=== PATIENT | male | born 1955 | race Caucasian/White ===

== ENCOUNTER 2019-01-28 14:56 | Emergency (ER) | payer BC ==
[2019-01-28] MEDS ORDERED: CIPROFLOXACIN HCL 500 MG TAB ONE (15:53)
[2019-01-28] MEDS ORDERED: TETANUS & DIPHTHERIA TOX,ADULT 0.5 ML VIAL ONE (15:53)
--- NOTE | 2019-01-28 16:19 | RAD REPORT ---
EXAM DESCRIPTION: RAD - Elbow Right 3 View - 01/28/2019 3:48 pm CLINICAL HISTORY: Right elbow pain status post injury FINDINGS: 7 millimeter bony/calcific density adjacent to the olecranon likely is chronic. No acute fracture or dislocation is seen. Diffuse edema is present within the subcutaneous tissues. No bony destructive lesion noted
--- NOTE | 2019-01-28 17:17 | EDPHYS ---
Physician Documentation [facility] Name: Manuel Jiang Jr Age: 63 yrs Sex: Male : 1955 Arrival Date: 01/28/2019 Time: 14:59 Bed 12 Private MD: Ja Batres ED Physician Kosta Sanderson HPI: 01/28 15:43 This 63 yrs old Male presents to ER via Ambulatory with complaints of Elbow snw Injury. 15:43 The patient or guardian complains of contusion, pain, swelling, tenderness. The snw complaints affect the right elbow. Context: The problem was sustained outdoors, resulted from pt had a mis-step and struck elbow of the brick wall of his home . Onset: The symptoms/episode began/occurred suddenly, 3 day(s) ago, and became persistent. Modifying factors: The symptoms are alleviated by nothing. the symptoms are aggravated by nothing. Associated signs and symptoms: Pertinent positives: swelling, bruising. Severity of symptoms: At their worst the symptoms were moderate, in the emergency department the symptoms are unchanged. The patient has not experienced similar symptoms in the past. The patient has not recently seen a physician. Historical: - Allergies: 15:08 No Known Allergies; aa5 - PMHx: 15:08 Diverticulitis; Acid Reflux; "Leaky heart valve"; aa5 - Immunization history:: Adult Immunizations up to date. - Social history:: Smoking status: Patient/guardian denies using tobacco. - Ebola Screening: : No symptoms or risks identified at this time. ROS: 15:42 Constitutional: Negative for fever, chills, and weight loss, Eyes: Negative for injury, snw pain, redness, and discharge, ENT: Negative for injury, pain, and discharge, Neck: Negative for injury, pain, and swelling, Cardiovascular: Negative for chest pain, palpitations, and edema, Respiratory: Negative for shortness of breath, cough, wheezing, and pleuritic chest pain, Abdomen/GI: Negative for abdominal pain, nausea, vomiting, diarrhea, and constipation, Back: Negative for injury and pain, : Negative for injury, bleeding, discharge, and swelling, Neuro: Negative for headache, weakness, numbness, tingling, and seizure. 15:42 MS/extremity: Positive for injury or acute deformity, contusion, ecchymosis, swelling, tenderness, of the right elbow. 15:42 Skin: Positive for abrasion(s), contusion to right elbow. Exam: 15:40 Constitutional: This is a well developed, well nourished patient who is awake, alert, snw and in no acute distress. Eyes: Pupils equal round and reactive to light, extra-ocular motions intact. Lids and lashes normal. Conjunctiva and sclera are non-icteric and not injected. Cornea within normal limits. Periorbital areas with no swelling, redness, or edema. ENT: Nares patent. No nasal discharge, no septal abnormalities noted. Tympanic membranes are normal and external auditory canals are clear. Oropharynx with no redness, swelling, or masses, exudates, or evidence of obstruction, uvula midline. Mucous membranes moist. Neck: Trachea midline, no thyromegaly or masses palpated, and no cervical lymphadenopathy. Supple, full range of motion without nuchal rigidity, or vertebral point tenderness. No Meningismus. Chest/axilla: Normal chest wall appearance and motion. Nontender with no deformity. No lesions are appreciated. Cardiovascular: Regular rate and rhythm with a normal S1 and S2. No gallops, murmurs, or rubs. Normal PMI, no JVD. No pulse deficits. Respiratory: Lungs have equal breath sounds bilaterally, clear to auscultation and percussion. No rales, rhonchi or wheezes noted. No increased work of breathing, no retractions or nasal flaring. Abdomen/GI: Soft, non-tender, with normal bowel sounds. No distension or tympany. No guarding or rebound. No evidence of tenderness throughout. Back: No spinal tenderness. No costovertebral tenderness. Full range of motion. Neuro: Awake and alert, GCS 15, oriented to person, place, time, and situation. Cranial nerves II-XII grossly intact. Motor strength 5/5 in all extremities. Sensory grossly intact. Cerebellar exam normal. Normal gait. Psych: Awake, alert, with orientation to person, place and time. Behavior, mood, and affect are within normal limits. 15:40 Head/face: Noted is abrasion(s), that are mild, of the right cheek. 15:40 Musculoskeletal/extremity: Extremities: grossly normal except: noted in the right elbow: ecchymosis, swelling, tenderness, ROM: intact in all extremities, Circulation is intact in all extremities. Sensation intact. 15:40 Skin: Appearance: normal except for affected area, injury, contusion(s), that are deep, of the right elbow, traumatic bursitis findings present. Vital Signs: 15:08 BP 146 / 80; Pulse 76; Resp 16 S; Temp 99.0(TE); Pulse Ox 99% on R/A; Weight 60.78 kg aa5 (R); Height 5 ft. 7 in. (170.18 cm) (R); Pain 0/10; 15:08 Body Mass Index 20.99 (60.78 kg, 170.18 cm) aa5 MDM: 15:25 Patient medically screened. snw 17:19 Data reviewed: vital signs, nurses notes. Data interpreted: Pulse oximetry: on room air snw is 99 %. Interpretation: normal. Counseling: I had a detailed discussion with the patient and/or guardian regarding: the historical points, exam findings, and any diagnostic results supporting the discharge/admit diagnosis, the presence of at least one elevated blood pressure reading (>120/80) during this emergency department visit, radiology results, the need for outpatient follow up, to return to the emergency department if symptoms worsen or persist or if there are any questions or concerns that arise at home. Special discussion: I have referred the patient to see his PCP for further evaluation of high blood pressure. I discussed in detail with the patient the higher chance of wound infection based on his presenting history. Based on the history and exam findings, there is no indication for further emergent testing or inpatient evaluation. I discussed with the patient/guardian the need to see the orthopedic surgeon for further evaluation of the symptoms. I discussed with the patient/guardian the need to see the primary care provider for further evaluation of the symptoms. 01/28 15:26 Order name: Elbow Right 3 View XRAY; Complete Time: 16:21 snw 01/28 15:26 Order name: Wound Care; Complete Time: 15:41 snw 01/28 15:26 Order name: Wound dressing; Complete Time: 15:41 snw 01/28 16:09 Order name: Sling; Complete Time: 16:49 snw Administered Medications: 15:41 Drug: Cipro 500 mg Route: PO; aa5 16:40 Follow up: Response: No adverse reaction aa5 15:41 Drug: Tetanus-Diphtheria Toxoid Adult 0.5 ml {Pediatric Dietician: [employer]. Exp: aa5 11/06/2020. Lot #: [id number]. } Route: IM; Site: right deltoid; 16:40 Follow up: Response: No adverse reaction aa5 15:41 Drug: Hibiclens 4 % 1 application Route: Topical; Site: wound; aa5 Disposition: 18:09 Co-signature as Attending Physician, Kosta Sanderson MD I agree with the assessment and kdr plan of care. Disposition: 01/28/19 17:16 Discharged to Home. Impression: Other bursitis of elbow, right elbow, Contusion of elbow, Abrasion of elbow. - Condition is Stable. - Discharge Instructions: Abrasion, Bursitis, VIS, Tetanus, Diphtheria (Td) - CDC, Wound Care, Heat Therapy, How to Use a Sling. - Prescriptions for Cipro 500 mg Oral Tablet - take 1 tablet by ORAL route every 12 hours for 7 days; 14 tablet. Diclofenac Sodium 75 mg Oral Tablet Sustained Release - take 1 tablet by ORAL route 2 times per day; 30 tablet. - Medication Reconciliation Form, Thank You Letter, Antibiotic Education, Prescription Opioid Use form. - Follow up: Ja Batres DO; When: 2 - 3 days; Reason: Recheck today's complaints, Continuance of care, Re-evaluation by your physician. Follow up: Emergency Department; When: As needed; Reason: Worsening of condition. - Notes: Happy Father's Day Signatures: Dispatcher [employer] EDMS Kosta Sanderson MD MD [facility] Nat Preston FNP-C TALEND DEVELOPER-Francoise Esparza, RN RN aa5 Corrections: (The following items were deleted from the chart) 17:27 17:16 01/28/2019 17:16 Discharged to Home. Impression: Other bursitis of elbow, right aa5 elbow; Contusion of elbow; Abrasion of elbow. Condition is Stable. Forms are Medication Reconciliation Form, Thank You Letter, Antibiotic Education, Prescription Opioid Use. Follow up: Ja Batres; When: 2 - 3 days; Reason: Recheck today's complaints, Continuance of care, Re-evaluation by your physician. Follow up: Emergency Department; When: As needed; Reason: Worsening of condition. snw
--- NOTE | 2019-01-28 17:17 | ER ---
Nurse's Notes [facility] Name: Manuel Jiang Jr Age: 63 yrs Sex: Male : 1955 Arrival Date: 01/28/2019 Time: 14:59 Bed 12 Private MD: Ja Batres Diagnosis: Other bursitis of elbow, right elbow;Contusion of elbow;Abrasion of elbow Presentation: 01/28 15:06 Presenting complaint: Patient states: "I hit my elbow with a brick wall on Thursday". aa5 Pt denies pain. Pt c/o small wound to right elbow. Transition of care: patient was not received from another setting of care. Onset of symptoms was January 2019. Risk Assessment: Do you want to hurt yourself or someone else? Patient reports no desire to harm self or others. Initial Sepsis Screen: Does the patient meet any 2 criteria? No. Patient's initial sepsis screen is negative. Does the patient have a suspected source of infection? No. Patient's initial sepsis screen is negative. Care prior to arrival: None. 15:06 Method Of Arrival: Ambulatory aa5 15:06 Acuity: HAO 4 aa5 Historical: - Allergies: 15:08 No Known Allergies; aa5 - PMHx: 15:08 Diverticulitis; Acid Reflux; "Leaky heart valve"; aa5 - Immunization history:: Adult Immunizations up to date. - Social history:: Smoking status: Patient/guardian denies using tobacco. - Ebola Screening: : No symptoms or risks identified at this time. Screenin:10 Abuse screen: Denies threats or abuse. Nutritional screening: No deficits noted. aa5 Tuberculosis screening: No symptoms or risk factors identified. Fall Risk None identified. Assessment: 15:10 General: Appears comfortable, Behavior is calm, cooperative. Pain: Denies pain. Neuro: aa5 Level of Consciousness is awake, alert, obeys commands, Oriented to person, place, time, situation. Cardiovascular: Patient's skin is warm and dry. Respiratory: Airway is patent Respiratory effort is even, unlabored, Respiratory pattern is regular, symmetrical. GI: No signs and/or symptoms were reported involving the gastrointestinal system. : No signs and/or symptoms were reported regarding the genitourinary system. EENT: No signs and/or symptoms were reported regarding the EENT system. Derm: Skin is pink, warm \\T\\ dry. Bruising that is dark purple, on right elbow Small dime-sized wound with scab noted to right elbow, no drainage or bleeding noted. . Musculoskeletal: Range of motion: intact in all extremities, Swelling present in right elbow. 15:35 Reassessment: Patient is alert, oriented x 3, equal unlabored respirations, skin aa5 warm/dry/pink. X-ray completed. Pt notified of wait time for results. . 15:41 Reassessment: wound cleaned with Hibiclens, dressed with Neosporin, non adherent aa5 dressing and Kerlix. . 16:49 Reassessment: Patient is alert, oriented x 3, equal unlabored respirations, skin aa5 warm/dry/pink. Sling applied to right arm . 17:20 Reassessment: Patient is alert, oriented x 3, equal unlabored respirations, skin aa5 warm/dry/pink. Patient denies pain at this time. Vital Signs: 15:08 BP 146 / 80; Pulse 76; Resp 16 S; Temp 99.0(TE); Pulse Ox 99% on R/A; Weight 60.78 kg aa5 (R); Height 5 ft. 7 in. (170.18 cm) (R); Pain 0/10; 15:08 Body Mass Index 20.99 (60.78 kg, 170.18 cm) aa5 ED Course: 14:59 Patient arrived in ED. mr 14:59 Ja Batres DO is Private Physician. mr 15:06 Arm band placed on. aa5 15:06 Patient has correct armband on for positive identification. Adult w/ patient. aa5 15:07 Triage completed. aa5 15:09 Francoise Nelson, YEIMI is Primary Nurse. aa5 15:11 Nat Preston FNP-C is PHCP. snw 15:11 Kosta Sanderson MD is Attending Physician. snw 15:48 Elbow Right 3 View XRAY In Process Unspecified. EDMS 17:15 Ja Batres DO is Referral Physician. snw 17:20 No provider procedures requiring assistance completed. Patient did not have IV access aa5 during this emergency room visit. Administered Medications: 15:41 Drug: Cipro 500 mg Route: PO; aa5 16:40 Follow up: Response: No adverse reaction aa5 15:41 Drug: Tetanus-Diphtheria Toxoid Adult 0.5 ml {Special Programs Director: [employer]. Exp: aa5 11/06/2020. Lot #: [id number]. } Route: IM; Site: right deltoid; 16:40 Follow up: Response: No adverse reaction aa5 15:41 Drug: Hibiclens 4 % 1 application Route: Topical; Site: wound; aa5 Outcome: 17:16 Discharge ordered by MD. butler 17:20 Discharged to home ambulatory, with family. aa5 17:20 Condition: good 17:20 Discharge instructions given to patient, family, Instructed on discharge instructions, follow up and referral plans. medication usage, wound care, Demonstrated understanding of instructions, follow-up care, medications, wound care, Prescriptions given X 2. 17:21 Patient left the ED. aa5 Signatures: Dispatcher [employer] EDNat Arteaga, JOHN STEEL FITTER-Mireya Acosta Audri, RN RN aa5 Corrections: (The following items were deleted from the chart) 17:28 17:27 Patient left the ED. aa5 aa5
== END 2019-01-28 17:27 | disposition home or self-care (01) ==
LOC: ER 14:56
DX: M71.521 Other bursitis, not elsewhere classified, right elbow (principal); S50.311A Abrasion of right elbow, initial encounter; W22.8XXA Striking against or struck by other objects, initial encounter; Y93.89 Activity, other specified; Y92.89 Other specified places as the place of occurrence of the external cause; Z23 Encounter for immunization
CPT/HCPCS: 90471; 90714; 99283